=== PATIENT | female | born 1970 | race Hispanic/Latino ===

== ENCOUNTER 2022-07-27 12:07 | Emergency (ER) | payer OTHER | END 2022-07-27 12:56 | disposition home or self-care (01) | LOC: CSHERS 12:07 | DX: S90.31XA Contusion of right foot, initial encounter (principal); Z87.891 Personal history of nicotine dependence; W20.8XXA Other cause of strike by thrown, projected or falling object, initial encounter ==

== ENCOUNTER 2022-08-28 18:21 | Emergency (ER) | payer OTHER ==
[2022-08-28] MEDS ORDERED: HYDROcodone/Acetaminophen 7.5/325 mg Tablet ONE (19:11)
== END 2022-08-28 22:28 | disposition home or self-care (01) ==
LOC: CSHERS 18:21
DX: M71.22 Synovial cyst of popliteal space [Baker], left knee (principal); M25.562 Pain in left knee; I10 Essential (primary) hypertension; Z87.891 Personal history of nicotine dependence

== ENCOUNTER 2023-03-10 15:08 | Outpatient (CLI) | payer OTHER | END 2023-03-10 15:09 | disposition home or self-care (01) | LOC: CSHMAMMO 15:08 | PROVIDERS: ATTEND Nurse Practitioner Women's Health | DX: Z12.31 Encounter for screening mammogram for malignant neoplasm of breast (principal) | CPT/HCPCS: 77063; 77067 ==

== ENCOUNTER 2025-10-20 05:42 | Day surgery (SDC) | payer OTHER ==
[2025-10-16 11:40] VITALS: BMI 43.3
[2025-10-20] MEDS ORDERED: Bupivacaine HCl 0.5%/Epinephrine 1:200,000/PF 30 ml Vial ONE (06:56)
[2025-10-20] MEDS ORDERED: Bupivacaine/Epinephrine 0.25% 30 ML VIAL ONE (07:09)
[2025-10-20] MEDS ORDERED: CEFAZOLIN 2 GM VIAL ONE (07:09)
[2025-10-20] MEDS ORDERED: PROPOFOL 40 ML ONE (07:10)
[2025-10-20] MEDS ORDERED: Lidocaine 1% PF 5 ML VIAL ONE (07:10)
[2025-10-20] MEDS ORDERED: Phenylephrine 40 MG/NS 250 ML 250 ML ONE (07:16)
[2025-10-20] MEDS ORDERED: HYDROcodone/Acetaminophen 5/325 mg Tablet ONE (09:34)
== END 2025-10-20 09:55 | disposition home or self-care (01) ==
LOC: CSHSDC 05:42
PROVIDERS: ATTEND Surgery
PROC: 0JBM0ZZ Excision of Left Upper Leg Subcutaneous Tissue and Fascia, Open Approach (ICD-10-PCS; principal; 2025-10-20)
DX: M79.89 Other specified soft tissue disorders (principal); I10 Essential (primary) hypertension; F41.1 Generalized anxiety disorder; F32.A Depression, unspecified; Z98.51 Tubal ligation status; Z87.891 Personal history of nicotine dependence; Z79.899 Other long term (current) drug therapy
CPT/HCPCS: 88304; J1100; J2704; J3010